=== PATIENT | female | born 1980 | race American Indian/Alaskan Native ===

== ENCOUNTER 2021-11-20 09:53 | Emergency (ER) | payer BC ==
[2021-11-20 11:03] VITALS: BP 123/79
--- NOTE | 2021-11-20 11:03 | Emergency Department Report ---
ED Lower Extremity HPI - General Chief Complaint: Extremity Injury, Lower Stated Complaint: LT KNEE PAIN (FELL) Time Seen by Provider: 11/20/21 11:03 Source: patient Mode of arrival: Ambulatory Limitations: No Limitations - History of Present Illness Initial Comments: 41 yo AA comes to ER 1 day p GLF onto the left knee. She states she thought she was fine but woke up today and it is sore and stiff. Witnessed fall. Mechanical. No other injury Pt is ambulatory to ER Took no meds [employer] in ER. Neurovasc intact No pain on palp of patella Effusion noted MD Complaint: knee injury -: Sudden, days(s) Injury: Ankle: Left Type of Injury: blunt Place: home Severity: mild Severity scale (0 -10): 4 Worsens With: weight bearing Context: fall - Related Data Allergies Allergy/AdvReac Type Severity Reaction Status Date / Time No Known Allergies Allergy Unverified 11/20/21 10:59 ED Review of Systems ROS: Stated complaint: LT KNEE PAIN (FELL) Other details as noted in HPI Comment: All other systems reviewed and negative ED Past Medical Hx - Past Medical History Previous Medical History?: No - Surgical History Past Surgical History?: No - Family History Family history: no significant - Social History Smoking Status: Never Smoker ED Physical Exam - General Limitations: No Limitations General appearance: alert, in no apparent distress - Head Head exam: Present: atraumatic, normocephalic - Eye Eye exam: Present: normal appearance - ENT ENT exam: Present: mucous membranes moist - Neck Neck exam: Present: normal inspection - Respiratory Respiratory exam: Present: normal lung sounds bilaterally. Absent: respiratory distress - Cardiovascular Cardiovascular Exam: Present: regular rate, normal rhythm. Absent: systolic murmur, diastolic murmur, rubs, gallop - GI/Abdominal GI/Abdominal exam: Present: soft, normal bowel sounds - Extremities Exam Extremities exam: Present: normal inspection - Back Exam Back exam: Present: normal inspection - Neurological Exam Neurological exam: Present: alert, oriented X3 - Psychiatric Psychiatric exam: Present: normal affect, normal mood - Skin Skin exam: Present: warm, dry, intact, normal color. Absent: rash ED Course Vital Signs 11/20/21 10:59 Temperature 98.5 F Pulse Rate 76 Respiratory 18 Rate Blood Pressure 123/79 [Right] O2 Sat by Pulse 99 Oximetry ED Lower Extremity MDM - Medical Decision Making tib/fib no pain on palp femur no pain on palp ambulatory neurovasc intact small suprapet. and medial effusion of the left knee on exam full rom educated on pt on imaging and no need for xray - soft tissue likely the culprit. knee immobilizer/crutches RICE treatment NSAIDS pt being dc home with dc plan of care- RICE- immobilizer - nsaids and ortho follow up She verbalizes understanding of the plan of care Vital Signs 11/20/21 10:59 Temperature 98.5 F Pulse Rate 76 Respiratory 18 Rate Blood Pressure 123/79 [Right] O2 Sat by Pulse 99 Oximetry - Differential Diagnosis knee pain Critical care attestation.: If time is entered above; I have spent that time in minutes in the direct care of this critically ill patient, excluding procedure time. ED Disposition Clinical Impression: Knee effusion, left Knee pain Qualifiers: Chronicity: acute Laterality: left Qualified Code(s): M25.562 - Pain in left knee Fall Qualifiers: Encounter type: initial encounter Qualified Code(s): W19.XXXA - Unspecified fall, initial encounter Disposition: HOME / SELF CARE / HOMELESS Is pt being admited?: No Does the pt Need Aspirin: No Condition: Stable Instructions: Acute Knee Pain, Adult Additional Instructions: ICE REST ELEVATE OVER THE COUNTER MOTRIN OR TYLENOL FOR PAIN IMMOBILIZER/CRUTCHES FOLLOW UP WITH ORTHO SO HE CAN REEVAL THE SWELLING AND DETERMINE IF YOU NEED MRI Referrals: SUMEET SERRATO MD [Staff Physician] - 3-5 Days Forms: Work/School Release Form(ED) Time of Disposition: 11:06
== END 2021-11-20 11:49 | disposition home or self-care (01) ==
LOC: ED 09:53
DX: M25.462 Effusion, left knee (principal); M25.562 Pain in left knee; W19.XXXA Unspecified fall, initial encounter; Y93.89 Activity, other specified; Y92.89 Other specified places as the place of occurrence of the external cause; Y99.8 Other external cause status
CPT/HCPCS: 99282